=== PATIENT | female | born 1940 | race Caucasian/White ===

== ENCOUNTER → 2016-12-25 | Outpatient (CLI) | payer OTHER ==
[2014-11-23 08:32] VITALS: BP 118/59
--- NOTE | 2016-12-25 12:48 | NM ---
HISTORY: Localized osteoarthritis of the left knee, left knee pain x1 month, history of previous righ t knee and right shoulder surgery, left chest wall pacemaker Study: Nuclear medicine whole-body bone scan Comparison: CT lumbar spine 02/19/2014 Technique: Whole body bone scintigraphy was performed in the anterior and posterior projection after the intravenous administration of 25.4 mCi of technetium labeled MDP. Findings: Normal soft tissue uptake and renal excretion is noted. There are bandlike abnormal areas of increas ed tracer uptake within the lumbar spine at approximately L2 and L3 and within the lower thoracic spi ne at approximately T10 or T11 suggestive of compression fractures. Prior CT from 2013 did not show a ny compression fractures in these areas but there was severe discogenic disease at L2-L3 and postsurg ical changes from L3 through L5. There is also heterogeneous increased uptake around the left knee jeremy int compatible with advanced degenerative changes. There is photopenia seen in the right knee that ma y represent postsurgical change. Additional area of photopenia is seen at the right shoulder likely d ue to postsurgical changes. Additional area of photopenia seen in the left chest wall corresponding t o pacemaker. IMPRESSION: 1. Heterogeneous increased uptake around the left knee joint compatible with advanced degenerative ch anges. 2. Bandlike focal areas of increased tracer accumulation within the lower thoracic and upper lumbar s pine as described suggestive of compression fractures. Correlation with CT or radiographs is recommen ded. 3. Postsurgical changes as described. Reported By:
== END | disposition home or self-care (01) | DRG 554 ==
LOC: RAD 08:40
PROVIDERS: ATTEND Specialist
DX: M17.12 Unilateral primary osteoarthritis, left knee (principal)
CPT/HCPCS: 78306

== ENCOUNTER 2017-11-08 07:30 | Inpatient (IN) ==
[2017-11-15] MEDS ORDERED: ANCEF 1 GRAM IV PREMIX* 1 G/50 ML BAG IV ONE ×2 (10:13→13:46)
[2017-11-15] MEDS ORDERED: D5 LR 1000 ML 1,000 ML IV ONE (10:13)
[2017-11-15] MEDS: D5 LR 1000 ML 1,000 ML IV SCH (10:26)
[2017-11-15 10:51] VITALS: BMI 24.9
[2017-11-15] MEDS ORDERED: FENTANYL INJ 250 mcg ONE (11:50)
[2017-11-15] MEDS ORDERED: DILAUDID INJ ONE ×2 (11:50→13:36)
[2017-11-15] MEDS ORDERED: SOLU-Cortef INJ ONE (11:51)
[2017-11-15] MEDS ORDERED: BACITRACIN IR ONE ×4 (13:51→13:52)
[2017-11-15] MEDS ORDERED: NS IRRIGATION 1000 ML 1,000 ML with BACITRACIN VIAL 50,000 UNIT IR ONE ×2 (13:51)
[2017-11-15] MEDS ORDERED: NS IRRIGATION IR ONE ×4 (13:51→13:52)
[2017-11-15] MEDS ORDERED: LR 1000 ML IV 1,000 ML IV ONE (14:04)
[2017-11-15] MEDS: DILAUDID INJ ONE ×2 (14:34→14:40)
[2017-11-15] MEDS: MORPHINE SULFATE PCA 30 MG IV PRN (15:44)
[2017-11-15] MEDS ORDERED: SUPRANE IN ONE (15:47)
[2017-11-15] MEDS ORDERED: ROBINUL ONE (15:47)
[2017-11-15] MEDS ORDERED: DIPRIVAN VIAL ONE (15:47)
[2017-11-15] MEDS ORDERED: NEOSTIGMINE INJ ONE (15:47)
[2017-11-15] MEDS ORDERED: VERSED ONE (15:47)
[2017-11-15] MEDS ORDERED: ZOFRAN INJ 4 MG VIAL ONE (15:47)
[2017-11-15] MEDS ORDERED: NORCURON INJ 10 MG VIAL ONE (15:47)
[2017-11-15] MEDS ORDERED: QUELICIN (OR ANECTINE) ONE (15:47)
[2017-11-15] MEDS ORDERED: XYLOCAINE 1 % (PLAIN) ONE (15:47)
--- NOTE | 2017-11-15 16:54 | RAD ---
History: Status post left total knee arthroplasty Technique: Three views of the left knee Comparison:NONE Findings: Patient status post left total knee arthroplasty. There is expected postsurgical changes with a surgi radha drain, subcutaneous and intra-articular air and overlying skin ladonna. There is no acute fractur e or dislocation. No evidence of hardware complication. Impression: 1. Status post left total knee arthroplasty with no evidence of hardware complication. Reported By:
[2017-11-15] MEDS ORDERED: MILK OF MAGNESIA PO PRN (19:43)
[2017-11-15] MEDS: COLACE CAP 100 MG PO SCH (20:47)
[2017-11-15] MEDS: AMBIEN PO PRN (20:47)
[2017-11-15] MEDS: LOVENOX INJ 30 MG SYR SC SCH (20:47)
[2017-11-15] MEDS: VANCOMYCIN HCL 1 GM VIAL 1 G in D5W 250 ML IV 250 ML IV SCH (20:49)
[2017-11-15] MEDS: PERCOCET TAB 5/325 MG PO PRN (20:49)
[2017-11-16] MEDS: PERCOCET TAB 5/325 MG PO PRN ×2 (00:39→06:07)
[2017-11-16 05:25] LABS: BASOPHILS # (AUTO) 0.1 X10^3/uL (0.0-0.1); BASOPHILS % (AUTO) 0.5 % (0.2-1.0); EOSINOPHILS % (AUTO) 0.4 % (0.9-2.9); HEMATOCRIT 23.1 % (36.0-47.0); LYMPHOCYTES # (AUTO) 1.9 X10^3/uL (1.3-2.9); LYMPHOCYTES % (AUTO) 18.9 % (21.0-51.0); MEAN CORPUSCULAR HEMOGLOBIN 29.7 pg (27.0-34.0); MEAN CORPUSCULAR HGB CONC 34.8 g/dL (33.0-35.0); MEAN CORPUSCULAR VOLUME 85.2 fL (80.0-100.0); MONOCYTES # (AUTO) 1.5 x10^3/uL (0.3-0.8); MONOCYTES % (AUTO) 14.5 % (0.0-13.0); NEUTROPHILS # (AUTO) 6.6 x10^3/uL (2.2-4.8); NEUTROPHILS % (AUTO) 65.7 % (42.0-75.0); PLATELET COUNT 162 X10^3/uL (150.0-450.0); RED BLOOD COUNT 2.71 X10^6/uL (3.5-5.4); RED CELL DISTRIBUTION WIDTH 14.1 % (11.6-16.5); WHITE BLOOD COUNT 10.1 X10^3/uL (3.6-10.0)
[2017-11-16 05:28] LABS: BLOOD UREA NITROGEN 16 mg/dL (7-18); CALCIUM 7.6 mg/dL (8.5-10.1); CHLORIDE 106 mmol/L (98-107); CREATININE 1.06 mg/dL (0.55-1.02); SODIUM 139 mmol/L (136-145); eGFR NON BLACK RACES 54 (>60)
[2017-11-16] MEDS: MORPHINE SULFATE PCA 30 MG IV PRN (05:50)
[2017-11-16] MEDS ORDERED: LORATADINE 10 MG PO SCH (09:00)
[2017-11-16] MEDS ORDERED: PATIENT'S HOME MEDICATION (Levothyroxine [Levothyroxine] 75 MCG) PO SCH (09:00)
[2017-11-16] MEDS ORDERED: NEURONTIN CAP 100 MG PO SCH (09:00)
[2017-11-16] MEDS: LOVENOX INJ 30 MG SYR SC SCH ×2 (09:38→21:38)
[2017-11-16] MEDS: VANCOMYCIN HCL 1 GM VIAL 1 G in D5W 250 ML IV 250 ML IV SCH (09:38)
--- NOTE | 2017-11-16 09:38 | OR.GENERIC ---
Post-Op Note Generic - Post-Op Note Operative Report: PREOPERATIVE DIAGNOSIS: Degenerative arthritis of the Left knee. POSTOPERATIVE DIAGNOSIS: Degenerative arthritis of the LEFT knee. PROCEDURE PERFORMED: LEFT Total knee replacement BLOOD LOSS: 50 cc. ANESTHESIA: General. IMPLANT USED FOR PROCEDURE: ROOPA triathlon Femur-posterior stabilized , size 5 Tibia-cemented stem, size 4 , stem 1250 mm Patella-symmetric 29 mm 8 mm Tibial bearing insert- posterior stabilized-9 mm, size 4 GROSS INTRAOPERATIVE FINDINGS: Degenerative shepherd of three compartments of the trochlea, the medial, as well as the lateral femoral condyles as well was the plateau. severe genu varum and flexion deformity. loose bodies in the posterior part ogf the knee. HISTORY: This is a 77-year-old female with complaints of LEFT knee pain for several years and increased intensity in the past several months where it has affected her activities of daily living. She attempted conservative treatment, which includes anti-inflammatory medications as well as cortisone and Synvisc. This has only provided her with temporary relief. she has had a RIGHT unicompartmental arthroplasty done few yrs ago and she wants her right knee to be done now. It is for that reason, she elected to undergo the above-named procedure. All risks as well as complications were discussed with the patient, which include, but are not limited to infection, deep vein thrombosis, pulmonary embolism, need for further surgery, and further pain. she has agreed to undergo this procedure and a consent was obtained preoperatively. limb was marked. got adductor canal block. got appropriate antibiotics. PROCEDURE: The patient was wheeled back to operating room and was placed supine on the operating room table. At this time, a nonsterile tourniquet was placed on the LEFT upper thigh, but not inflated. An Esmarch was then used to exsanguinate the extremity and the left extremity was then prepped and draped in the usual sterile fashion for this procedure. The tourniquet was then inflated to 325 mmHg. At this time, a standard midline incision was made. medial parapatellar arthrotomy was completed. medial release of proximl tibia, fat pad excision, ant femoral synovium excision was ompleted. Medail and lateral meniscua and ACL and PCL was excised.the patella was everted. At this time with a better exposure of the proximal tibia, we placed external tibial guide. This was placed with longitudinal axis of the tibia and carefully positioned in order to obtain an optimal cut for the proximal tibia. At this time with careful soft tissue retraction and protection, an oscillating saw was used to make a proximal tibial osteotomy. Prior to the osteotomy, the cut was checked with a depth gauge in order to assure appropriate bony resection. At this time, I then used a drill to cannulate the distal femoral canal in order to place the intramedullary guide. Distal femroal osteotomy was completed. siz 5 femur was determined. Epicondylar axis was determined. 4 in 1 block placed and bone cuts complted. posterior osteophytes removed with osteotome and curette. box cut finished. The block was then removed and an osteotome was then used to remove all the bony cut pieces. the tibia was sized to 4. Rotation was assessed and the proximal tibia was prepared for both the intramedullary stem as well as the flange.Once this was removed, we then implanted our trial components of size 5 to the femur and a size 4 mm tibial tray with 9 mm plastic articulating surface. The knee was taken through range of motion and revealed excellent femorotibial articulation.patient had complete extension. Flexion to 120. Stable in extension and flexion. The 11 mm articulating polyethylene was also tried and it was found to be too tight. The patella was prepared with the jig after and resected 8 mm which maintained its initial thickness. At this time, the prosthesis was removed. we then copiously irrigated the wound and then suctioned it dry to get ready and prepped for cementation of the drilled components.posterior capsular injection was completed. At this time, polymethyl methacrylate cement was then mixed. The cement was placed on the tibial surface as well as the underneath surface of the component. The component was then placed and impacted with excess cement removed. In a similar fashion, the femoral and patellar component was also placed. A 9 mm plastic tray was then placed and the leg held in full extension and compression in order to obtain adequate bony cement content. Once the cement was fully hardened , the knee was flexed and a small osteotome was used to remove any extruding cement from around the prosthesis of the bone. Once this was performed, copious irrigation was used to irrigate the wound and the wound was then suctioned dry. We decided to go with a #9 mm polyethylene tray. At this time, this was placed to the tibial articulation and then left in place. This was rechecked with careful attention to detail with checking no soft tissue interpositioned between the polyethylene tray and the metal tray of the tibia. The knee was again taken through range of motion and revealed excellent tracking of the patella with good femur and tibial contact. A drain was placed and cut to length. At this time, the knee was irrigated and copiously suction dried. #1-0 Vicryl suture was then used to approximate the medial parapatellar arthrotomy in figure -of-eight fashion. A tight capsular closure was performed. tourniquet was deflated and there tight capsular repair was watertight.At this time, the knee was again taken through range of motion to assure tight capsular closure. At this time, copious irrigation was used to irrigate the superficial wound. #2-0 Vicryl was used to approximate the wound with [id number] inverted suture. The skin was then approximated with ladonna. The leg was then cleansed. Sterile dressing consisting of Adaptic, 4x4, ABDs, and Kerlix roll were then applied. At this time, the patient was extubated and transferred to recovery in stable condition. Prognosis is good for this patient.post op xrays were satisfactory. the family was updated about the surgery. Postoperative instructions have been discussed with him. Patient is allowed full weightbearing without any restrictions. We will have her enough pain control for her. We will get physical therapy for her rehabilitation. We will also start her on LOVENOX.
[2017-11-16] MEDS: PREDNISONE TAB 5 MG PO SCH (10:07)
[2017-11-16] MEDS: PriLOSEC PO SCH ×2 (10:07→21:37)
[2017-11-16] MEDS: K-DUR TAB 20 MEQ PO SCH (10:08)
[2017-11-16] MEDS: LASIX PO SCH (10:08)
[2017-11-16] MEDS: TAB-A-VITE PO SCH (10:08)
[2017-11-16] MEDS: ZOCOR TAB 10 MG PO SCH (10:08)
[2017-11-16] MEDS: MULTAQ PO SCH ×2 (10:08→21:38)
[2017-11-16] MEDS: CLARITIN PO SCH (11:02)
[2017-11-16] MEDS: SYNTHROID 75 mcg TAB PO SCH (11:03)
[2017-11-16] MEDS ORDERED: MORPHINE SULFATE INJ 2 MG INJ IVP PRN (11:21)
[2017-11-16] MEDS: NEURONTIN CAP 100 MG PO SCH ×2 (11:46→21:36)
[2017-11-16] MEDS: MOTRIN TAB 800 MG PO SCH ×2 (11:54→21:39)
[2017-11-16] MEDS: D5 LR 1000 ML 1,000 ML IV SCH (13:43)
[2017-11-16] MEDS: ROXICODONE TAB 5 MG PO PRN ×2 (13:57→21:36)
[2017-11-16] MEDS: LIOTHYRONINE 5 MCG PO SCH (14:04)
[2017-11-16] MEDS: AMBIEN PO PRN (21:37)
[2017-11-16] MEDS: COLACE CAP 100 MG PO SCH (21:37)
[2017-11-16 22:00] LABS: BILIRUBIN,URINE NEGATIVE (NEGATIVE); BLOOD/HEMOGLOBIN,URINE NEGATIVE (NEGATIVE); GLUCOSE, URINE NEGATIVE (NEGATIVE); KETONES,URINE NEGATIVE (NEGATIVE); LEUKOCYTE ESTERASE ,URINE NEGATIVE (NEGATIVE); NITRITES,URINE NEGATIVE (NEGATIVE); PROTEIN,URINE NEGATIVE (NEGATIVE); UROBILINOGEN,URINE NORMAL (NORMAL)
[2017-11-16 22:08] LABS: APPEARANCE,URINE CLEAR (CLEAR); COLOR,URINE PALE YELLOW (YELLOW)
[2017-11-17] MEDS: MOTRIN TAB 800 MG PO SCH ×3 (04:25→20:30)
[2017-11-17] MEDS: NEURONTIN CAP 100 MG PO SCH ×3 (04:25→21:10)
[2017-11-17 06:26] LABS: BASOPHILS # (AUTO) 0.1 X10^3/uL (0.0-0.1); EOSINOPHILS # (AUTO) 0.1 x10^3/uL (0.0-0.2); EOSINOPHILS % (AUTO) 1.4 % (0.9-2.9); HEMATOCRIT 21.6 % (36.0-47.0); HEMOGLOBIN 7.5 g/dL (12.0-16.0); LYMPHOCYTES # (AUTO) 1.5 X10^3/uL (1.3-2.9); LYMPHOCYTES % (AUTO) 15.3 % (21.0-51.0); MEAN CORPUSCULAR HEMOGLOBIN 29.6 pg (27.0-34.0); MEAN CORPUSCULAR HGB CONC 34.9 g/dL (33.0-35.0); MEAN CORPUSCULAR VOLUME 84.7 fL (80.0-100.0); MEAN PLATELET VOLUME 8.9 fL (7.4-11.0); MONOCYTES # (AUTO) 1.3 x10^3/uL (0.3-0.8); MONOCYTES % (AUTO) 13.6 % (0.0-13.0); NEUTROPHILS # (AUTO) 6.8 x10^3/uL (2.2-4.8); NEUTROPHILS % (AUTO) 68.7 % (42.0-75.0); PLATELET COUNT 157 X10^3/uL (150.0-450.0); RED BLOOD COUNT 2.55 X10^6/uL (3.5-5.4); RED CELL DISTRIBUTION WIDTH 14.1 % (11.6-16.5); WHITE BLOOD COUNT 9.9 X10^3/uL (3.6-10.0)
[2017-11-17 06:28] LABS: BLOOD UREA NITROGEN 13 mg/dL (7-18); CARBON DIOXIDE 27.6 mmol/L (21-32); CHLORIDE 104 mmol/L (98-107); CREATININE 1.25 mg/dL (0.55-1.02); SODIUM 138 mmol/L (136-145); eGFR NON BLACK RACES 44 (>60)
[2017-11-17] MEDS: SYNTHROID 75 mcg TAB PO SCH (06:50)
[2017-11-17 07:06] LABS: HYPOCHROMASIA 1+; PLATELET MORPHOLOGY COMMENT NORMAL (NORMAL)
--- NOTE | 2017-11-17 08:17 | PCM.PROG ---
Progress Note - Progress Note for Day of Date of Exam: 11/16/17 - Subjective Subjective: IS DAY 1 STATUS POST LEFT TOTAL KNEE PLACEMENT. TODAY, SHE IS ALERT AND ORIENTED, LYING IN BED ON MORNING ROUNDS. SHE IS NOTED WITH COMPLAINTS OF LEFT KNEE PAIN. SHE REPORTS THAT PAIN IS NOT WELL CONTROLLED ON THE MORPHINE VP PURCHASING. SHE WAS STARTED ON PERCOCET LAST NIGHT, BUT REPORTS THAT IT ISNT HELPING MUCH EITHER. ON EXAMINATION, THERE IS A DRESSING TO LEFT KNEE. DRESSING IS DRY AND INTACT WITH NO SIGNS OR SX INFECTION NOTED TO SITE. THERE IS A HEMOVAC NOTED TO DRAINAGE AT BEDSIDE. HER VITALS TODAY ARE 98.9-78-18-95%- 102/55. LABS WERE OBTAINED. ABNORMAL LAB VALUES INCLUDE THE FOLLOWING: WBC 10.1 , RBC 2.71, HGB 8.0, HCT 23.1, CREATININE 1.06. PHYSICAL THERAPY CONTINUES TO WORK WITH PATIENT THIS MORNING. TODAY, WE WILL CONTINUE WITH CURRENT PLAN OF CARE. WILL CONTINUE TO MONITOR PATIENT. WE WILL DISCUSS WITH HIM DIFFERENT OPTIONS FOR PAIN MANAGEMENT. OTHERWISE, WE WILL FOLLOW UP WITH AM LABS AND CONTINUE TO MONITOR PATIENT. - Past Medical Family Social History Past Med/Fam/Surg Hx: No changes since H&P Allergies: Allergies Sulfa (Sulfonamide Antibiotics) [SULFA] Allergy (Verified 11/15/17 11:52) - Review of Systems ROS: No change since H&P - Vital Signs and I&O's Vital Signs: Temperature 99.7 F Pulse Rate [Right Brachial] 95 Pulse Rate 79 Respiratory Rate 18 Blood Pressure [Right Arm] 102/59 Blood Pressure [Left Arm] 118/59 Blood Pressure 116/64 O2 Sat by Pulse Oximetry 96 Intake and Output: Intake & Output 11/14/17 11/15/17 11/16/17 11/17/17 11:59 11:59 11:59 11:59 Intake Total 50 / 50 1416 / 1416 1264 / 1264 Output Total 1245 / 1245 5 / 5 Balance 50 / 50 171 / 171 1259 / 1259 - Physical Exam Oriented: Normal Eyes: Normal Ear: Normal Nose: Normal Throat: Normal Respiratory: Normal Cardiovascular: Normal. negative: S3, S4, Murmur : Normal Auscultation: Bowel Sounds: Normal Palpation: Normal Tenderness: Normal Skin: Wound (SURGICAL WOUND LEFT KNEE ) Musculoskeletal: Left, Leg, Tender Psychiatric: Normal Mood Description: Calm Speech Pattern: Clear, Appropriate - Laboratory and Diagnostics Result Diagrams: 11/17/17 05:30 11/17/17 05:30 Labs: Laboratory WBC 9.9 X10^3/uL (3.6-10.0) 11/17/17 05:30 RBC 2.55 X10^6/uL (3.5-5.4) L 11/17/17 05:30 Hgb 7.5 g/dL (12.0-16.0) L 11/17/17 05:30 Hct 21.6 % (36.0-47.0) L 11/17/17 05:30 MCV 84.7 fL (80.0-100.0) 11/17/17 05:30 MCH 29.6 pg (27.0-34.0) 11/17/17 05:30 MCHC 34.9 g/dL (33.0-35.0) 11/17/17 05:30 RDW 14.1 % (11.6-16.5) 11/17/17 05:30 Plt Count 157 X10^3/uL (150.0-450.0) 11/17/17 05:30 Plt Count Comment Adequate (ADEQUATE) 11/17/17 05:30 MPV 8.9 fL (7.4-11.0) 11/17/17 05:30 Neut % (Auto) 68.7 % (42.0-75.0) 11/17/17 05:30 Lymph % (Auto) 15.3 % (21.0-51.0) L 11/17/17 05:30 [place] % (Auto) 13.6 % (0.0-13.0) H 11/17/17 05:30 Eos % (Auto) 1.4 % (0.9-2.9) 11/17/17 05:30 Baso % (Auto) 1.0 % (0.2-1.0) 11/17/17 05:30 Neut # (Auto) 6.8 x10^3/uL (2.2-4.8) H 11/17/17 05:30 Lymph # (Auto) 1.5 X10^3/uL (1.3-2.9) 11/17/17 05:30 [place] # (Auto) 1.3 x10^3/uL (0.3-0.8) H 11/17/17 05:30 Eos # (Auto) 0.1 x10^3/uL (0.0-0.2) 11/17/17 05:30 Baso # (Auto) 0.1 X10^3/uL (0.0-0.1) 11/17/17 05:30 Absolute Nucleated RBC 0.0 /100WBC 11/17/17 05:30 Plt Morphology Comment Normal (NORMAL) 11/17/17 05:30 RBC Morphology Abnormal (NORMAL) A 11/17/17 05:30 Hypochromasia 1+ A 11/17/17 05:30 Sodium 138 mmol/L (136-145) 11/17/17 05:30 Corrected Sodium TNP 11/17/17 05:30 Potassium 3.7 mmol/L (3.5-5.1) 11/17/17 05:30 Chloride 104 mmol/L (98-107) 11/17/17 05:30 Carbon Dioxide 27.6 mmol/L (21-32) 11/17/17 05:30 BUN 13 mg/dL (7-18) 11/17/17 05:30 Creatinine 1.25 mg/dL (0.55-1.02) H 11/17/17 05:30 Est GFR (MDRD) Af Amer 54 (>60) L 11/17/17 05:30 Est GFR (MDRD) Non-Af 44 (>60) L 11/17/17 05:30 Glucose 99 mg/dL (65-99) 11/17/17 05:30 Calcium 8.0 mg/dL (8.5-10.1) L 11/17/17 05:30 Specimen Type Random urine 11/16/17 21:51 Urine Color Pale yellow (YELLOW) 11/16/17 21:51 Urine Appearance Clear (CLEAR) 11/16/17 21:51 Urine pH 5.0 (5.0 - 8.0) 11/16/17 21:51 Ur Specific [place] 1.015 (1.000-1.030) 11/16/17 21:51 Urine Protein Negative (NEGATIVE) 11/16/17 21:51 Urine Glucose (UA) Negative (NEGATIVE) 11/16/17 21:51 Urine Ketones Negative (NEGATIVE) 11/16/17 21:51 Urine Occult Blood Negative (NEGATIVE) 11/16/17 21:51 Urine Nitrite Negative (NEGATIVE) 11/16/17 21:51 Urine Bilirubin Negative (NEGATIVE) 11/16/17 21:51 Urine Urobilinogen Normal (NORMAL) 11/16/17 21:51 Ur Leukocyte Esterase Negative (NEGATIVE) 11/16/17 21:51 - Plan (1) Status post left knee replacement Status: Acute Plan: WOUND CARE, PAIN MANAGMENT, PHYSICAL THERAPY, DVT PROPHYLAXIS, CONTINUE TO MONITOR
[2017-11-17] MEDS ORDERED: PHARMACY COMMENT IV NR (08:30)
[2017-11-17] MEDS: LOVENOX INJ 30 MG SYR SC SCH ×2 (09:37→21:06)
[2017-11-17] MEDS: ZOCOR TAB 10 MG PO SCH (09:38)
[2017-11-17] MEDS: TAB-A-VITE PO SCH (09:38)
[2017-11-17] MEDS: CLARITIN PO SCH (09:38)
[2017-11-17] MEDS: K-DUR TAB 20 MEQ PO SCH (09:38)
[2017-11-17] MEDS: PriLOSEC PO SCH ×2 (09:38→21:04)
[2017-11-17] MEDS: MULTAQ PO SCH ×2 (09:38→21:04)
[2017-11-17] MEDS: LASIX PO SCH (09:39)
[2017-11-17] MEDS: PREDNISONE TAB 5 MG PO SCH (09:39)
[2017-11-17] MEDS: LIOTHYRONINE 5 MCG PO SCH (09:40)
[2017-11-17] MEDS ORDERED: BENADRYL INJ 50 MG VIAL IVP PRN (10:16)
[2017-11-17] MEDS ORDERED: TYLENOL 325 MG TAB PO PRN (10:16)
[2017-11-17] MEDS ORDERED: NS 500 ML IV 500 ML IV ONE (10:16)
[2017-11-17] MEDS: D5 LR 1000 ML 1,000 ML IV SCH (11:36)
--- NOTE | 2017-11-17 13:33 | PCM.PROG ---
Progress Note - Progress Note for Day of Date of Exam: 11/17/17 - Subjective Subjective: POD 2 .doing well. hgb has reudced. we will transfuse her. Drain will be removed today. dressing changed. advised to ROM knee , WBAT with PT. Has some issue passing urine, burning. will get urine UA. stble vitals. low grade temp. - Past Medical Family Social History Past Med/Fam/Surg Hx: No changes since H&P Allergies: Allergies Sulfa (Sulfonamide Antibiotics) [SULFA] Allergy (Verified 11/15/17 11:52) - Review of Systems ROS: No change since H&P - Vital Signs and I&O's Vital Signs: Temperature 98.9 F Pulse Rate [Right Brachial] 90 Pulse Rate 79 Respiratory Rate 18 Blood Pressure [Right Arm] 101/52 Blood Pressure [Left Arm] 118/59 Blood Pressure 116/64 O2 Sat by Pulse Oximetry 90 Intake and Output: Intake & Output 11/14/17 11/15/17 11/16/17 11/17/17 23:59 23:59 23:59 23:59 Intake Total 1235 / 1235 1495 / 1495 0 / 0 Output Total 895 / 895 350 / 350 5 / 5 Balance 340 / 340 1145 / 1145 -5 / -5 - Physical Exam Oriented: Normal Eyes: Normal Ear: Normal Nose: Normal Throat: Normal Respiratory: Normal Cardiovascular: Normal. negative: S3, S4, Murmur : Normal Auscultation: Bowel Sounds: Normal Tenderness: Normal Skin: Wound (SURGICAL WOUND LEFT KNEE ) Musculoskeletal: Left, Leg, Tender Psychiatric: Normal Mood Description: Calm Speech Pattern: Clear, Appropriate - Laboratory and Diagnostics Result Diagrams: 11/17/17 05:30 11/17/17 05:30 Labs: Laboratory WBC 9.9 X10^3/uL (3.6-10.0) 11/17/17 05:30 RBC 2.55 X10^6/uL (3.5-5.4) L 11/17/17 05:30 Hgb 7.5 g/dL (12.0-16.0) L 11/17/17 05:30 Hct 21.6 % (36.0-47.0) L 11/17/17 05:30 MCV 84.7 fL (80.0-100.0) 11/17/17 05:30 MCH 29.6 pg (27.0-34.0) 11/17/17 05:30 MCHC 34.9 g/dL (33.0-35.0) 11/17/17 05:30 RDW 14.1 % (11.6-16.5) 11/17/17 05:30 Plt Count 157 X10^3/uL (150.0-450.0) 11/17/17 05:30 Plt Count Comment Adequate (ADEQUATE) 11/17/17 05:30 MPV 8.9 fL (7.4-11.0) 11/17/17 05:30 Neut % (Auto) 68.7 % (42.0-75.0) 11/17/17 05:30 Lymph % (Auto) 15.3 % (21.0-51.0) L 11/17/17 05:30 [place] % (Auto) 13.6 % (0.0-13.0) H 11/17/17 05:30 Eos % (Auto) 1.4 % (0.9-2.9) 11/17/17 05:30 Baso % (Auto) 1.0 % (0.2-1.0) 11/17/17 05:30 Neut # (Auto) 6.8 x10^3/uL (2.2-4.8) H 11/17/17 05:30 Lymph # (Auto) 1.5 X10^3/uL (1.3-2.9) 11/17/17 05:30 [place] # (Auto) 1.3 x10^3/uL (0.3-0.8) H 11/17/17 05:30 Eos # (Auto) 0.1 x10^3/uL (0.0-0.2) 11/17/17 05:30 Baso # (Auto) 0.1 X10^3/uL (0.0-0.1) 11/17/17 05:30 Absolute Nucleated RBC 0.0 /100WBC 11/17/17 05:30 Plt Morphology Comment Normal (NORMAL) 11/17/17 05:30 RBC Morphology Abnormal (NORMAL) A 11/17/17 05:30 Hypochromasia 1+ A 11/17/17 05:30 Sodium 138 mmol/L (136-145) 11/17/17 05:30 Corrected Sodium TNP 11/17/17 05:30 Potassium 3.7 mmol/L (3.5-5.1) 11/17/17 05:30 Chloride 104 mmol/L (98-107) 11/17/17 05:30 Carbon Dioxide 27.6 mmol/L (21-32) 11/17/17 05:30 BUN 13 mg/dL (7-18) 11/17/17 05:30 Creatinine 1.25 mg/dL (0.55-1.02) H 11/17/17 05:30 Est GFR (MDRD) Af Amer 54 (>60) L 11/17/17 05:30 Est GFR (MDRD) Non-Af 44 (>60) L 11/17/17 05:30 Glucose 99 mg/dL (65-99) 11/17/17 05:30 Calcium 8.0 mg/dL (8.5-10.1) L 11/17/17 05:30 Specimen Type Random urine 11/16/17 21:51 Urine Color Pale yellow (YELLOW) 11/16/17 21:51 Urine Appearance Clear (CLEAR) 11/16/17 21:51 Urine pH 5.0 (5.0 - 8.0) 11/16/17 21:51 Ur Specific [place] 1.015 (1.000-1.030) 11/16/17 21:51 Urine Protein Negative (NEGATIVE) 11/16/17 21:51 Urine Glucose (UA) Negative (NEGATIVE) 11/16/17 21:51 Urine Ketones Negative (NEGATIVE) 11/16/17 21:51 Urine Occult Blood Negative (NEGATIVE) 11/16/17 21:51 Urine Nitrite Negative (NEGATIVE) 11/16/17 21:51 Urine Bilirubin Negative (NEGATIVE) 11/16/17 21:51 Urine Urobilinogen Normal (NORMAL) 11/16/17 21:51 Ur Leukocyte Esterase Negative (NEGATIVE) 11/16/17 21:51 Blood Type Cancelled 11/11/17 12:50 Antibody Screen Cancelled 11/11/17 12:50 Crossmatch See Detail 11/17/17 Unknown - Plan (1) Status post left knee replacement Status: Acute Plan: WOUND CARE, PAIN MANAGMENT, PHYSICAL THERAPY, DVT PROPHYLAXIS, CONTINUE TO MONITOR
--- NOTE | 2017-11-17 20:29 | PCM.PROG ---
Progress Note - Progress Note for Day of Date of Exam: 11/17/17 - Subjective Subjective: IS DAY 2 STATUS POST LEFT TOTAL KNEE PLACEMENT. TODAY, SHE IS ALERT AND ORIENTED, LYING IN BED ON MORNING ROUNDS. SHE IS NOTED WITH COMPLAINTS OF LEFT KNEE PAIN. SHE REPORTS THAT PAIN IS SLIGHTLY MORE TOLERABLE THAN YESTERDAY. ON EXAMINATION, THERE IS A DRESSING TO LEFT KNEE. DRESSING IS DRY AND INTACT WITH NO SIGNS OR SX INFECTION NOTED TO SITE. THERE IS A HEMOVAC NOTED TO DRAINAGE AT BEDSIDE. HER VITALS TODAY ARE 100.1-90-18-90%RA-101/52. LABS WERE OBTAINED. ABNORMAL LAB VALUES INCLUDE THE FOLLOWING: RBC 2.55, HGB 7.5 , HCT 21.6, CREATININE 1.25, GFR 44, CALCIUM 8.0. PHYSICAL THERAPY REPORTS THAT PATIENT REFUSED TO WALK YESTERDAY. PATIENT EDUCATED ON THE IMPORTANCE OF EARLY AMBULATION. SHE STATES THAT SHE WILL ATTEMPT TO BE MORE AGGRESSIVE TODAY. TODAY , WE WILL TRANSFUSE TWO UNITS OF PACKED RED BLOOD CELLS. OTHERWISE, WE WILL CONTINUE WITH CURRENT PLAN OF CARE. WILL CONTINUE TO MONITOR PATIENT. OTHERWISE, WE WILL FOLLOW UP WITH AM LABS AND CONTINUE TO MONITOR PATIENT. - Past Medical Family Social History Past Med/Fam/Surg Hx: No changes since H&P Allergies: Allergies Sulfa (Sulfonamide Antibiotics) [SULFA] Allergy (Verified 11/15/17 11:52) - Review of Systems ROS: No change since H&P - Vital Signs and I&O's Vital Signs: Temperature 98.7 F Pulse Rate [Right Brachial] 67 Pulse Rate 79 Respiratory Rate 18 Blood Pressure [Right Arm] 91/51 Blood Pressure [Left Arm] 118/59 Blood Pressure 116/64 O2 Sat by Pulse Oximetry 97 Intake and Output: Intake & Output 11/15/17 11/16/17 11/17/17 11/18/17 11:59 11:59 11:59 11:59 Intake Total 50 / 50 1416 / 1416 1264 / 1264 800 / 800 Output Total 1245 / 1245 5 / 5 Balance 50 / 50 171 / 171 1259 / 1259 800 / 800 - Physical Exam Oriented: Normal Eyes: Normal Ear: Normal Nose: Normal Throat: Normal Respiratory: Normal Cardiovascular: Normal. negative: S3, S4, Murmur : Normal Auscultation: Bowel Sounds: Normal Palpation: Normal Tenderness: Normal Skin: Wound (SURGICAL WOUND LEFT KNEE ) Musculoskeletal: Left, Leg, Tender Psychiatric: Normal Mood Description: Calm Speech Pattern: Clear, Appropriate - Laboratory and Diagnostics Result Diagrams: 11/17/17 05:30 11/17/17 05:30 Labs: Laboratory WBC 9.9 X10^3/uL (3.6-10.0) 11/17/17 05:30 RBC 2.55 X10^6/uL (3.5-5.4) L 11/17/17 05:30 Hgb 7.5 g/dL (12.0-16.0) L 11/17/17 05:30 Hct 21.6 % (36.0-47.0) L 11/17/17 05:30 MCV 84.7 fL (80.0-100.0) 11/17/17 05:30 MCH 29.6 pg (27.0-34.0) 11/17/17 05:30 MCHC 34.9 g/dL (33.0-35.0) 11/17/17 05:30 RDW 14.1 % (11.6-16.5) 11/17/17 05:30 Plt Count 157 X10^3/uL (150.0-450.0) 11/17/17 05:30 Plt Count Comment Adequate (ADEQUATE) 11/17/17 05:30 MPV 8.9 fL (7.4-11.0) 11/17/17 05:30 Neut % (Auto) 68.7 % (42.0-75.0) 11/17/17 05:30 Lymph % (Auto) 15.3 % (21.0-51.0) L 11/17/17 05:30 [place] % (Auto) 13.6 % (0.0-13.0) H 11/17/17 05:30 Eos % (Auto) 1.4 % (0.9-2.9) 11/17/17 05:30 Baso % (Auto) 1.0 % (0.2-1.0) 11/17/17 05:30 Neut # (Auto) 6.8 x10^3/uL (2.2-4.8) H 11/17/17 05:30 Lymph # (Auto) 1.5 X10^3/uL (1.3-2.9) 11/17/17 05:30 [place] # (Auto) 1.3 x10^3/uL (0.3-0.8) H 11/17/17 05:30 Eos # (Auto) 0.1 x10^3/uL (0.0-0.2) 11/17/17 05:30 Baso # (Auto) 0.1 X10^3/uL (0.0-0.1) 11/17/17 05:30 Absolute Nucleated RBC 0.0 /100WBC 11/17/17 05:30 Plt Morphology Comment Normal (NORMAL) 11/17/17 05:30 RBC Morphology Abnormal (NORMAL) A 11/17/17 05:30 Hypochromasia 1+ A 11/17/17 05:30 Sodium 138 mmol/L (136-145) 11/17/17 05:30 Corrected Sodium TNP 11/17/17 05:30 Potassium 3.7 mmol/L (3.5-5.1) 11/17/17 05:30 Chloride 104 mmol/L (98-107) 11/17/17 05:30 Carbon Dioxide 27.6 mmol/L (21-32) 11/17/17 05:30 BUN 13 mg/dL (7-18) 11/17/17 05:30 Creatinine 1.25 mg/dL (0.55-1.02) H 11/17/17 05:30 Est GFR (MDRD) Af Amer 54 (>60) L 11/17/17 05:30 Est GFR (MDRD) Non-Af 44 (>60) L 11/17/17 05:30 Glucose 99 mg/dL (65-99) 11/17/17 05:30 Calcium 8.0 mg/dL (8.5-10.1) L 11/17/17 05:30 Specimen Type Random urine 11/16/17 21:51 Urine Color Pale yellow (YELLOW) 11/16/17 21:51 Urine Appearance Clear (CLEAR) 11/16/17 21:51 Urine pH 5.0 (5.0 - 8.0) 11/16/17 21:51 Ur Specific [place] 1.015 (1.000-1.030) 11/16/17 21:51 Urine Protein Negative (NEGATIVE) 11/16/17 21:51 Urine Glucose (UA) Negative (NEGATIVE) 11/16/17 21:51 Urine Ketones Negative (NEGATIVE) 11/16/17 21:51 Urine Occult Blood Negative (NEGATIVE) 11/16/17 21:51 Urine Nitrite Negative (NEGATIVE) 11/16/17 21:51 Urine Bilirubin Negative (NEGATIVE) 11/16/17 21:51 Urine Urobilinogen Normal (NORMAL) 11/16/17 21:51 Ur Leukocyte Esterase Negative (NEGATIVE) 11/16/17 21:51 Blood Type Cancelled 11/11/17 12:50 Antibody Screen Cancelled 11/11/17 12:50 Crossmatch See Detail 11/17/17 Unknown - Plan (1) Status post left knee replacement Status: Acute Plan: WOUND CARE, PAIN MANAGMENT, PHYSICAL THERAPY, DVT PROPHYLAXIS, CONTINUE TO MONITOR
--- NOTE | 2017-11-17 20:53 | RAD ---
HISTORY: 77-year-old female status post left knee surgery. Study: Frontal view of the chest. Comparison: Chest radiographs 11/04/2017 Findings: Surgical and support devices are unchanged. The trachea is midline. The cardiac silhouette is stably enlarged with low lung volumes and bibasila r patchy airspace opacities with prominent interstitium and perihilar lung markings. No focal consol idation, effusion or pneumothorax. Soft tissues are unremarkable. Osseous structures are unremarkabl e. IMPRESSION: 1. Cardiomegaly with basilar airspace opacities likely representing atelectasis, correlate clinicall y for underlying infection. 2. Other findings consistent with COPD, correlate clinically. Reported By:
[2017-11-17] MEDS: COLACE CAP 100 MG PO SCH (21:04)
[2017-11-17] MEDS: PERCOCET TAB 5/325 MG PO SCH (21:10)
[2017-11-17] MEDS: AMBIEN PO PRN (23:44)
[2017-11-18] MEDS: MOTRIN TAB 800 MG PO SCH (03:41)
[2017-11-18] MEDS: D5 LR 1000 ML 1,000 ML IV SCH ×2 (03:41→10:44)
[2017-11-18] MEDS: PERCOCET TAB 5/325 MG PO SCH ×2 (03:41→09:50)
[2017-11-18 05:18] LABS: BASOPHILS # (AUTO) 0.1 X10^3/uL (0.0-0.1); BASOPHILS % (AUTO) 0.8 % (0.2-1.0); EOSINOPHILS # (AUTO) 0.3 x10^3/uL (0.0-0.2); EOSINOPHILS % (AUTO) 2.8 % (0.9-2.9); HEMATOCRIT 25.3 % (36.0-47.0); HEMOGLOBIN 8.9 g/dL (12.0-16.0); LYMPHOCYTES # (AUTO) 1.8 X10^3/uL (1.3-2.9); LYMPHOCYTES % (AUTO) 19.3 % (21.0-51.0); MEAN CORPUSCULAR HEMOGLOBIN 29.9 pg (27.0-34.0); MEAN CORPUSCULAR HGB CONC 35.1 g/dL (33.0-35.0); MEAN CORPUSCULAR VOLUME 85.3 fL (80.0-100.0); MEAN PLATELET VOLUME 8.9 fL (7.4-11.0); MONOCYTES # (AUTO) 1.1 x10^3/uL (0.3-0.8); MONOCYTES % (AUTO) 11.3 % (0.0-13.0); NEUTROPHILS # (AUTO) 6.2 x10^3/uL (2.2-4.8); NEUTROPHILS % (AUTO) 65.8 % (42.0-75.0); PLATELET COUNT 143 X10^3/uL (150.0-450.0); RED BLOOD COUNT 2.96 X10^6/uL (3.5-5.4); RED CELL DISTRIBUTION WIDTH 14.7 % (11.6-16.5); WHITE BLOOD COUNT 9.5 X10^3/uL (3.6-10.0)
[2017-11-18 05:30] LABS: BLOOD UREA NITROGEN 18 mg/dL (7-18); CALCIUM 7.9 mg/dL (8.5-10.1); CARBON DIOXIDE 25.6 mmol/L (21-32); CHLORIDE 109 mmol/L (98-107); CREATININE 1.42 mg/dL (0.55-1.02); SODIUM 143 mmol/L (136-145); eGFR NON BLACK RACES 38 (>60)
[2017-11-18] MEDS: NEURONTIN CAP 100 MG PO SCH (05:42)
[2017-11-18] MEDS: SYNTHROID 75 mcg TAB PO SCH (06:30)
[2017-11-18] MEDS: K-DUR TAB 20 MEQ PO SCH (09:12)
[2017-11-18] MEDS: PriLOSEC PO SCH (09:12)
[2017-11-18] MEDS: MULTAQ PO SCH (09:12)
[2017-11-18] MEDS: CLARITIN PO SCH (09:13)
[2017-11-18] MEDS: ZOCOR TAB 10 MG PO SCH (09:13)
[2017-11-18] MEDS: LOVENOX INJ 30 MG SYR SC SCH (09:13)
[2017-11-18] MEDS: LASIX PO SCH (09:13)
[2017-11-18] MEDS: TAB-A-VITE PO SCH (09:13)
[2017-11-18] MEDS: PREDNISONE TAB 5 MG PO SCH (09:14)
[2017-11-18] MEDS: LIOTHYRONINE 5 MCG PO SCH (09:14)
[2017-11-18 10:41] VITALS: BP 107/54
[2017-11-18] MEDS ORDERED: BENADRYL CAP 50 MG PO ONE (10:53)
[2017-11-18] MEDS ORDERED: SOLU-Medrol 40 MG VIAL IVP ONE (10:54)
[2017-11-18] MEDS ORDERED: BENADRYL CAP/TAB 25 MG PO ONE (11:18)
--- NOTE | 2017-12-29 23:08 | DR.CARTERD ---
- Discharge Summary for: Discharge Summary for Date of:: 11/18/17 - Admission Date Date of Admission: 11/15/17 - Admission Diagnoses Admission Diagnosis: (1) Status post left knee replacement (2) Left knee pain - Discharge Date Discharge Date: 11/18/17 - Discharge Diagnoses Discharge Diagnosis: (1) Status post left knee replacement (2) Left knee pain - Hospital Course Hospital Course: Ms. Charles is a 77-year-old female with consistent pain in the left knee, gradually getting worse over the last three years. The pain was moderate-to- severe, dull aching and at times sharp stabbing pain. The patient reported the pain as all around the knee but significantly on the medial side. She rated that pain about 7 to 8 most of the time and was worse to around 9 or 10. She had associated symptoms of catching, locking, muscle weakness, and joint swelling. The patient also had been complaining of pain under the kneecap, as well as decreased and painful range of motion. She had issues getting up and down the stairs. The patient had issues with prolonged walking. The patient had undergone x-rays, MRI, and other investigations which confirmed that she had osteoarthritis. She had tried massage, heat, ice, knee braces, unloading braces, cane, and other walking aid without much improvement. The patient had also tried physical therapy with strengthening, as well as range of motion and pain management modalities which had not helped her. The patient had tried nonsteroidal anti-inflammatories, intra and extra-articular cortisone injections , and Synvisc injection without much improvement. The patient was at a stage where she had tried and failed all the conservative management. Patient taken to OR for a left total knee replacement, per Dr. Knight. Hgb dropped to 7.5 on post-op day two and patient received two units PRBC's. Post-op day three, hgb was 8.9. Patient continued with physical therapy. Post-op day four, patient was doing well. She reported she was doing well with physical therapy and pain was controlled with oral pain medication. Dr. Knight released patient for discharge. Vital signs stable, afebrile. Labs wnl. We planned for discharge. Instructions for medications and follow up were discussed with patient and family, both voiced understanding. Patient discharged home in stable condition with family. - Discharge Medications Discharge Medications: Home Medication List dronedarone [Multaq] 400 mg PO BID 11/15/17 [History] furosemide 40 mg PO DAILY 11/15/17 [History] gabapentin 200 mg PO TID 11/15/17 [History] levothyroxine 75 mcg PO DAILY 11/15/17 [History] liothyronine 5 mcg PO DAILY 11/15/17 [History] loratadine [Claritin RediTabs] 10 mg PO ONCE 11/15/17 [History] metoprolol succinate 50 mg PO ONCE 11/15/17 [History] multivitamin 1 tab PO QAM 11/15/17 [History] omeprazole magnesium [Prilosec OTC] 40 mg PO BID 11/15/17 [History] potassium chloride 20 meq PO DAILY 11/15/17 [History] prednisone 6 mg PO DAILY 11/15/17 [History] ropinirole 1 mg PO BID 11/15/17 [History] simvastatin 10 mg PO QAM 11/15/17 [History] tramadol 50 mg PO Q4-6H PRN 11/15/17 [History] warfarin See Label Instructions .ROUTE .COMPLEX 11/15/17 [History] warfarin See Label Instructions .ROUTE .COMPLEX 11/15/17 [History] zolpidem [Ambien] 10 mg PO HS 11/15/17 [History] iron-folic acid-mv, min cmb#15 [Hemocyte-Plus] 1 cap PO DAILY #30 cap 11/18/17 [ Rx] Prescriptions: iron-folic acid-mv, min cmb#15 [Hemocyte-Plus] Mick Morales - Discharge Disposition Discharge Disposition: Patient is to follow up with Dr. Knight in one week and with Dr. Emmy Ferraro in one week.
== END 2017-11-18 12:45 | disposition home health service (06) | DRG 470 ==
LOC: MED/SURG 11-15 09:50
PROVIDERS: ADMIT Orthopaedic Surgery; ATTEND Internal Medicine
DX: M25.562 Pain in left knee; I10 Essential (primary) hypertension; M17.11 Unilateral primary osteoarthritis, right knee; Z95.0 Presence of cardiac pacemaker
CPT/HCPCS: 36415; 36430; 71010; 71045; 73560; 80048; 81003; 85025; 86922; 87040; 94762; 97110; 97116; 97163; 97167; 97530; 97535; 99100; A4216; A4222; P9016; J0330; J0690; J1170; J1200; J1650; J1720; J2250; J2270; J2271; J2405; J2704; J2710; J2920; J3010; J3370; J3490; J7040; J7060; J7120; J7121; J7512